=== PATIENT | female | born 1975 | race Caucasian/White ===

== ENCOUNTER 2019-10-26 17:18 | Emergency (ER) | payer MEDICAID ==
[~2019-10-26] VITALS: Ht 154.9 cm; Wt 62.6 kg
[2019-10-26 19:42] VITALS: BP 136/71
[2019-10-26] MEDS ORDERED: BACITRACIN INJ 50000 UNIT VIAL TOP ONE (21:30)
[2019-10-26] MEDS ORDERED: VITAMINS A & D (TOPICAL) OINT 5GM TOP ONE (21:37)
[2019-10-26] MEDS ORDERED: NEOMYCIN-BACITRACIN-POLYM 15GM TOP OINT TOP SCH (22:00)
== END 2019-10-26 21:45 | disposition home or self-care (01) ==
LOC: ER 17:18
DX: S61.411A Laceration without foreign body of right hand, initial encounter (principal); W25.XXXA Contact with sharp glass, initial encounter; Y93.G1 Activity, food preparation and clean up; Y92.89 Other specified places as the place of occurrence of the external cause; Y99.8 Other external cause status
CPT/HCPCS: 73200